=== PATIENT | female | born 1965 | race Caucasian/White ===

== ENCOUNTER 2017-03-24 13:02 | Emergency (ER) | payer OTHER ==
[~2017-03-24] VITALS: Ht 160 cm; Wt 87.5 kg
[~2017-03-24 13:02] MED LIST: BENZONATATE200 M1 PO; PREDNISONE10 M2 PO; ZITHROMAX250 M2 PO
--- NOTE | 2017-03-24 14:01 | ED INFLUENZA/URI COMPLAINT ---
History of Present Illness General Chief Complaint: Upper Respiratory Sx/Fever Stated Complaint: COUGH, CHEST CONGESTION, SORE THROAT Source: patient, old records Exam Limitations: no limitations Vital Signs & Intake/Output Vital Signs & Intake/Output Vital Signs Date Time Temp Pulse Resp B/P B/P Pulse O2 O2 Flow FiO2 Mean Ox Delivery Rate 03/24 1538 98.0 80 20 138/79 98 Room Air 03/24 1507 99 03/24 1308 97.1 69 18 142/82 98 Room Air Allergies Coded Allergies: codeine (UNKNOWN 03/24/17) Reconcile Medications Azithromycin (Zithromax) 250 MG TABLET 1 DP PO AD BRONCHITIS 2 the first day followed by 1 for days 2-5 Benzonatate 200 MG CAPSULE 1 CAP PO TIDPRN COUGH Oseltamivir Phosphate (Tamiflu) 75 MG CAPSULE 1 CAP PO BID FLU Prednisone 10 MG TABLET 1 TAB PO AD BRONCHITIS 6 TABS DAYS 1-3 4 TABS DAYS 4-6 2 TABS DAYS 7-9 1 TAB DAYS 10-12 Promethazine/Dextromethorphan (Promethazine-Dm Syrup) 6.25 MG-15 MG/5 ML SYRUP 5 ML PO Q4P PRN COUGH Triage Note: C/O COUGH WITH SORE THROAT X 1 WEEK, FEVER 10 DAYS AGO. ALSO C/O BODY ACHES AND NAUSEA. 193 Triage Nurses Notes Reviewed? yes Onset: Abrupt Duration: week(s): (1), constant Timing: recent history Severity: moderate Severity Numbers: 7 Prior Episodes/Possible Cause: occassional episodes No Modifying Factors: none Associated Symptoms: dizziness, fever/chills, nasal congestion, nasal drainage HPI: 51-year-old female nonsmoker presents the ER for evaluation complaining of generalized bodyaches productive cough of clear sputum and subjective fever and chills. She reports her niece has been sick with similar symptoms. She's had one episode of vomiting secondary to cough and 1 episode of diarrhea. No abdominal pain chest pain shortness of breath. No rashes to her skin no recent travel or immobility. She's been taking [id number] medicines without improvement she has Symbicort and albuterol at home. (Danielle HAYNES,Kaushik) Past History Travel History Traveled to [place] past 21 day No Medical History Any Pertinent Medical History? see below for history Neurological: NONE EENT: NONE Cardiovascular: NONE Respiratory: asthma Gastrointestinal: NONE Hepatic: NONE Renal: NONE Musculoskeletal: fibromyalgia Psychiatric: NONE Endocrine: NONE Surgical History Surgical History: non-contributory Psychosocial History Who do you live with Family Services at Home None What is your primary language Ukrainian Tobacco Use: Quit <30 days ago ETOH Use: denies use Family History Hx Contributory? No (Kaushik Melgar) Review of Systems Review of Systems Constitutional: Reports: see HPI. Comments Review of systems: See HPI, All other systems negative. Constitutional, fever, no malaise HEENT: no sore throat congestion, no ear pain Cardiovascular: No chest pain , no palpitation Skin: no rashes, no change in skin Respiratory: No dyspnea cough no sputum GI: No nausea vomiting, diarrhea, no bloating/constipation : No dysuria No hematuria, no frequency Muscle skeletal: No joint pain, no back pain, no neck pain, Neurologic: , no headache Heme/endocrine: No bruising (Kaushik Melgar) Physical Exam Physical Exam General Appearance: well developed/nourished, no apparent distress, alert, awake Ears, Nose, Throat: normal ENT inspection, moist mucous membrane Comments: Well-developed well-nourished person in no acute distress Head/Face: Atraumatic, no maxillary/frontal sinus tenderness, no facial swelling Eyes: PERRL, EOMI, no conjunctival injection Ear:External auditory canal and Tympanic membranes clear, no erythema Nose: atraumatic.Normal inspection: No bleeding, no septal hematoma Throat: Moist mucous membranes.Pharynx normal. No pharyngeal erythema/exudate seen. No stridor/drooling or assymetry. No swelling or edema. Neck: Supple, no lymphadenopathy, FROM Back: Nontender, no CVA tenderness. Full range of motion Cardiovascular: Regular rate and rhythms no murmur Respiratory: No respiratory distress. Patient speaking in full complete sentences. Breath sounds clear to auscultation bilaterally: NO W/R/R Abdomen: Soft, nontender Extremity: No edema, full range of motion of extremities Neuro: Alert oriented x3, motor sensory normal, cranial nerves II through XII grossly intact. There were no obvious focal neurologic abnormalities. Skin: No appreciable rash on exposed skin, skin is warm and dry. Psych: Mood and affect is normal, memory and judgment is normal. Core Measures Sepsis Present: No Sepsis Focused Exam Completed? No (Kaushik Melgar) Progress Differential Diagnosis: influenza, otitis, pneumonia, pharyngitis, sinusitis Plan of Care: Orders Procedure Date/time Status EKG 03/24 1310 Active RAPID VIRAL INFLUENZA A 03/24 1304 Complete Microbiology 03/24 1315 NASOPHARYN: Influenza Virus A & B Rapid Smear - COMP INFLUENZA TYPE B Flu swab sent from triage I discussed with her plan of care and her results of the x-ray ordered breathing treatment ordered. Patient reports feeling improved after breathing treatment I discussed with her her x-ray results we'll send her home with Tamiflu return precautions were discussed at length advised Tylenol Motrin she feels comfortable with plan cleared for discharge Diagnostic Imaging: Viewed by Me: Radiology Read. Discussed w/RAD: Radiology Read. Radiology Impression: PATIENT: ALEJANDRA ANDREWS PRESENT AGE: 51 PATIENT ACCOUNT NO: [id number] : 64 LOCATION: [facility] ORDERING PHYSICIAN: Kaushik HAYNES SERVICE DATE: 03/24/17 EXAM TYPE: RAD - XRY-CHEST XRAY, TWO VIEWS EXAMINATION: XR CHEST CLINICAL INFORMATION: Cough and fever with concern for pneumonia. COMPARISON: Chest 01/22/2017. TECHNIQUE: 2 views of the chest were obtained. FINDINGS: The lungs are clear. No pleural effusion. Cardiomediastinal silhouette and pulmonary vasculature are within normal limits. No acute osseous findings. IMPRESSION: No acute cardiopulmonary disease. DICTATED BY: Hi Lerma MD DATE/TIME DICTATED:12/29 PAST DUE ACCOUNTS CLERK:JIGNESH DATE/TIME TRANSCRIBED:03/24/171528 CONFIDENTIAL, DO NOT COPY WITHOUT APPROPRIATE AUTHORIZATION. <Electronically signed in Other Vendor System> SIGNED BY: Hi Lerma MD 03/24/17 1533 Initial ED EKG: normal intervals, normal p-waves, normal QRS complex, normal sinus rhythm (Kaushik Melgar) Departure Departure Disposition: HOME OR SELF CARE Condition: Stable Clinical Impression Primary Impression: Influenza Referrals: Tana Sanchez (PCP/Family) Additional Instructions: REST, TYLENOL OR MOTRIN EVERY 4-6 HOURS. TAMIFLU DIRECTED. PROMETHAZINE FOR COUGH. FOLLOW UP WITH YOUR PMD, RETURN WITH ANY CONCERNS Departure Forms: Customer Survey General Discharge Information Prescriptions: Current Visit Scripts Promethazine/Dextromethorphan (Promethazine-Dm Syrup) 5 ML PO Q4P PRN COUGH #120 ML Oseltamivir Phosphate (Tamiflu) 1 CAP PO BID #10 CAP (Kaushik Melgar) PA/WASHATERIA ATTENDANT Co-Sign Statement Statement: ED Attending supervision documentation- [] I saw and evaluated the patient. I have also reviewed all the pertinent lab results and diagnostic results. I agree with the findings and the plan of care as documented in the PA's/WASHATERIA ATTENDANT's documentation. [X] I have reviewed the ED Record and agree with the PA's/WASHATERIA ATTENDANT's documentation. [] Additions or exceptions (if any) to the PAs/WASHATERIA ATTENDANT's note and plan are summarized below: [] (Aaliyah OCASIO,Ewa)
[2017-03-24] MEDS ORDERED: PROMETHAZINE-D118 ML PO (14:16)
[2017-03-24] MEDS ORDERED: TAMIFLU75 M1 PO (14:16)
--- NOTE | 2017-03-24 15:33 | RADIOLOGY REPORT ---
EXAMINATION: XR CHEST CLINICAL INFORMATION: Cough and fever with concern for pneumonia. COMPARISON: Chest 01/22/2017. TECHNIQUE: 2 views of the chest were obtained. FINDINGS: The lungs are clear. No pleural effusion. Cardiomediastinal silhouette and pulmonary vasculature are within normal limits. No acute osseous findings. IMPRESSION: No acute cardiopulmonary disease.
[2017-03-24 15:38] VITALS: BP 138/79
== END 2017-03-24 15:38 ==
LOC: ERH 13:02
DX: J11.1 Influenza due to unidentified influenza virus with other respiratory manifestations (principal)
CPT/HCPCS: 1263; 71046; 87804; 87804-59; 93005; 93010

== ENCOUNTER 2017-05-17 16:11 | Emergency (ER) | payer OTHER ==
[~2017-05-17] VITALS: Ht 167.6 cm; Wt 132.9 kg
[~2017-05-17 16:11] MED LIST changes: +PROMETHAZINE-D118 ML PO; +TAMIFLU75 M1 PO
--- NOTE | 2017-05-17 20:04 | CT SCAN REPORT ---
EXAMINATION: CT ABDOMEN AND PELVIS WITHOUT CONTRAST CLINICAL INFORMATION: Right-sided lower back pain radiating to the flank. COMPARISON: 05/04/2010 TECHNIQUE: Multidetector volumetric imaging was performed from the superior aspect of the liver through the pubic symphysis. Sagittal and coronal reformatted images were obtained on the technologist's workstation. DLP: 1215 mGy-cm FINDINGS: LUNG BASES: The visualized lung bases are unremarkable. LIVER, GALLBLADDER, AND BILIARY TREE: The liver is normal in size, shape, and attenuation. No focal hepatic lesion or biliary ductal dilatation is present. Cholecystectomy. PANCREAS: Unremarkable. SPLEEN: Unremarkable. ADRENAL GLANDS: Unremarkable. KIDNEYS AND URETERS: The kidneys are normal in size, shape, and attenuation. No hydronephrosis, hydroureter, or calculi seen. No perinephric stranding. BLADDER: Unremarkable. GASTROINTESTINAL TRACT: Status post Nasir-en-Y gastric bypass. No obstruction. No dilated loops of bowel. No bowel wall thickening. Normal appendix. No colonic wall thickening. No free air or free fluid. ABDOMINAL WALL: Status post ventral abdominal wall hernia repair. Redemonstration of the thick-walled fluid collection superficial to the hernia repair. This collection measures 7.3 x 3.1 cm and is similar to the remote prior study. LYMPH NODES: Normal. VASCULAR: Unremarkable. PELVIC VISCERA: Unremarkable. OSSEOUS STRUCTURES: No acute or suspicious osseous abnormality. Degenerative changes in the spine. Mild degenerative changes in the hips. IMPRESSION: No acute findings in the abdomen or pelvis. No hydronephrosis or nephrolithiasis. No inflammatory changes. Normal appendix. Unchanged appearance of the superficial fluid collection/seroma overlying the prior hernia repair.
--- NOTE | 2017-05-17 20:18 | ED GENERAL ADULT ---
History of Present Illness General Chief Complaint: Low Back Pain/Injury Stated Complaint: LWR BACK PAIN X5 DAYS Source: patient Exam Limitations: no limitations Vital Signs & Intake/Output Vital Signs & Intake/Output Vital Signs Date Time Temp Pulse Resp B/P B/P Pulse O2 O2 Flow FiO2 Mean Ox Delivery Rate 05/17 1840 71 18 122/62 99 Room Air 05/17 1632 98.1 68 18 139/80 98 Room Air Allergies Coded Allergies: codeine (UNKNOWN 03/24/17) Reconcile Medications Azithromycin (Zithromax) 250 MG TABLET 1 DP PO AD BRONCHITIS 2 the first day followed by 1 for days 2-5 Benzonatate 200 MG CAPSULE 1 CAP PO TIDPRN COUGH Naproxen (Naprosyn) 500 MG TABLET 1 TAB PO BID PRN PAIN Oseltamivir Phosphate (Tamiflu) 75 MG CAPSULE 1 CAP PO BID FLU Prednisone 10 MG TABLET 1 TAB PO AD BRONCHITIS 6 TABS DAYS 1-3 4 TABS DAYS 4-6 2 TABS DAYS 7-9 1 TAB DAYS 10-12 Promethazine/Dextromethorphan (Promethazine-Dm Syrup) 6.25 MG-15 MG/5 ML SYRUP 5 ML PO Q4P PRN COUGH Tramadol HCl 50 MG TABLET 1 TAB PO Q6P PRN PAIN Triage Note: PT STATES THAT SHE HAS HAD R FLANK PAIN SINCE SATURDAY AND PAIN IS INCREASING , PT HAS HISTORY OF KIDNEY INFECTIONS. COMPLAINS OF DECREASED URINATION. AFEBRILE Triage Nurses Notes Reviewed? yes Onset: Abrupt Duration: day(s): (3), changing over time, continues in ED Timing: single episode today Injury Environment: home Severity: mild, moderate Severity Numbers: 7 No Modifying Factors: none LMP (ages 10-50): unknown : No Patient currently breastfeeds: No HPI: 52-year-old female past medical history of asthma and febrile myalgia potential evaluation of right flank pain. Patient states symptoms started about 3 days ago and has been persistent. The pain is located in the right flank and right lower back does not radiate. There was no trauma or triggering event. The pain is worse with movement or positioning. She is not taking any medicine for this. She rates it as a 7 out of 10. No urinary symptoms hematuria fever chest pain shortness of breath nausea vomiting or diarrhea. She does have a previous history of back problems. This is different. No history of kidney stones. No recent abdominal surgeries. No numbness or tingling no bowel or bladder dysfunction. Past History Travel History Traveled to [place] past 21 day No Medical History Any Pertinent Medical History? 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 No Review of Systems Review of Systems Constitutional: Reports: no symptoms. EENTM: Reports: no symptoms. Respiratory: Reports: no symptoms. Cardiovascular: Reports: no symptoms. GI: Reports: see HPI, abdominal pain. Genitourinary: Reports: no symptoms. Musculoskeletal: Reports: see HPI, back pain, muscle pain, muscle stiffness. Skin: Reports: no symptoms. Neurological/Psychological: Reports: no symptoms. Hematologic/Endocrine: Reports: no symptoms. Immunologic/Allergic: Reports: no symptoms. All Other Systems: Reviewed and Negative Physical Exam Physical Exam General Appearance: well developed/nourished, no apparent distress, alert, awake Head: atraumatic, normal appearance Eyes: Bilateral: normal appearance, PERRL, EOMI. Ears, Nose, Throat: hearing grossly normal Neck: normal inspection, supple, full range of motion Respiratory: normal breath sounds, chest non-tender, no respiratory distress, lungs clear Cardiovascular: regular rate/rhythm, normal peripheral pulses Peripheral Pulses: 2+ radial (R), 2+ radial (L) Gastrointestinal: normal bowel sounds, soft, no organomegaly, tenderness (rt flank ), the right flank pain is reproducible with movement of the trunk Back: normal inspection, normal range of motion, right-sided lumbar paraspinous muscles tender to palpation. No step-offs or deformities noted midline pain or bruising swelling or abrasions Extremities: normal inspection, normal capillary refill, normal range of motion, no edema Neurologic/Psych: no motor/sensory deficits, awake, alert, oriented x 3, normal gait Skin: intact, normal color, warm/dry Lymphatic: no anterior cervical marvin Core Measures ACS in differential dx? No CVA/TIA Diagnosis: No Sepsis Present: No Sepsis Focused Exam Completed? No Progress Differential Diagnoses I considered the following diagnoses in my evaluation of the patient: [Muscle strain, herniated disc, kidney stone, pyelonephritis, appendicitis, diverticulitis, cauda equina,] Plan of Care: Orders Procedure Date/time Status URINALYSIS 05/17 1635 Complete Laboratory Tests 05/17/17 1640: Urine Color YEL, Urine Clarity CLEAR, Urine pH 5.5, Ur Specific [place] >= 1.030 , Urine Protein NEG, Urine Ketones NEG, Urine Nitrite NEG, Urine Bilirubin NEG, Urine Urobilinogen 0.2, Ur Leukocyte Esterase NEG, Ur Microscopic EXAM NOT REQUIRED, Urine Hemoglobin NEG, Urine Glucose NEG Patient seen and evaluated. She is reporting pain in the right flank for the past few days. This pain is reproducible with range of motion and palpation. She also has right-sided back pain. No trauma. Urine is clean. Vital signs are stable. CT scan of the abdomen and pelvis is negative for any acute findings. Patient will be treated symptomatically. She is feeling much better after receiving tramadol here. She is tolerating food and fluids. Advised rest avoid excessive physical activity heavy lifting or bending continue Tylenol or ibuprofen tramadol for severe pain and follow-up with primary care doctor discussed return precautions patient agrees the plan. Diagnostic Imaging: Viewed by Me: CT Scan. Discussed w/RAD: CT Scan. Radiology Impression: PATIENT: ALEJANDRA ANDREWS PRESENT AGE: 52 PATIENT ACCOUNT NO: [id number] : 64 LOCATION: [facility] ORDERING PHYSICIAN: Kwabena HAYNES SERVICE DATE: 05/17/17 EXAM TYPE: CAT - CT ABD & PELVIS W/O IV CONTRAS EXAMINATION: CT ABDOMEN AND PELVIS WITHOUT CONTRAST CLINICAL INFORMATION: Right-sided lower back pain radiating to the flank. COMPARISON: 05/04/2010 TECHNIQUE: Multidetector volumetric imaging was performed from the superior aspect of the liver through the pubic symphysis. Sagittal and coronal reformatted images were obtained on the technologist's workstation. DLP: 1215 mGy-cm FINDINGS: LUNG BASES: The visualized lung bases are unremarkable. LIVER, GALLBLADDER, AND BILIARY TREE: The liver is normal in size, shape, and attenuation. No focal hepatic lesion or biliary ductal dilatation is present. Cholecystectomy. PANCREAS: Unremarkable. SPLEEN: Unremarkable. ADRENAL GLANDS: Unremarkable. KIDNEYS AND URETERS: The kidneys are normal in size, shape, and attenuation. No hydronephrosis, hydroureter, or calculi seen. No perinephric stranding. BLADDER: Unremarkable. GASTROINTESTINAL TRACT: Status post Nasir-en-Y gastric bypass. No obstruction. No dilated loops of bowel. No bowel wall thickening. Normal appendix. No colonic wall thickening. No free air or free fluid. ABDOMINAL WALL: Status post ventral abdominal wall hernia repair. Redemonstration of the thick-walled fluid collection superficial to the hernia repair. This collection measures 7.3 x 3.1 cm and is similar to the remote prior study. LYMPH NODES: Normal. VASCULAR: Unremarkable. PELVIC VISCERA: Unremarkable. OSSEOUS STRUCTURES: No acute or suspicious osseous abnormality. Degenerative changes in the spine. Mild degenerative changes in the hips. IMPRESSION: No acute findings in the abdomen or pelvis. No hydronephrosis or nephrolithiasis. No inflammatory changes. Normal appendix. Unchanged appearance of the superficial fluid collection/seroma overlying the prior hernia repair. DICTATED BY: Patricia OCASIO,Gregory DATE/TIME DICTATED:05/17/171952 CLOTHES DESIGNER:JIGNESH DATE/TIME TRANSCRIBED:05/17/171952 CONFIDENTIAL, DO NOT COPY WITHOUT APPROPRIATE AUTHORIZATION. Initial ED EKG: none Departure Departure Disposition: HOME OR SELF CARE Condition: Stable Clinical Impression Primary Impression: Low back pain Qualifiers: Chronicity: acute Back pain laterality: right Sciatica presence: without sciatica Qualified Code: M54.5 - Low back pain Referrals: Carmine HAYNES,Tana Perla (PCP/Family) Additional Instructions: Rest and drink plenty of fluids. Naproxen 500 mg every 12 hours with food as needed for pain. Tramadol for severe pain only this may cause drowsiness. Follow-up with her primary care doctor this coming week. Monitor symptoms return with any concerns. Departure Forms: Customer Survey General Discharge Information Prescriptions: Current Visit Scripts Naproxen (Naprosyn) 1 TAB PO BID PRN PAIN #30 TAB Tramadol HCl 1 TAB PO Q6P PRN PAIN #10 TAB Critical Care Note Critical Care Note Critical Care Time: non-applicable
[2017-05-17] MEDS ORDERED: TRAMADOL HCL50 M1 PO (20:22)
[2017-05-17] MEDS ORDERED: NAPROSYN500 M1 PO (20:22)
[2017-05-17 20:32] VITALS: BP 128/66
== END 2017-05-17 20:32 ==
LOC: ERH 16:11
DX: M54.5 Low back pain (principal)
CPT/HCPCS: 74176; 81003